=== PATIENT | female | born 1990 | race Caucasian/White ===

== ENCOUNTER 2019-06-16 13:07 | Emergency (ER) | payer OTHER, SELFPAY ==
[2019-06-16 13:20] VITALS: BP 150/58; PULSE 88; RESP 14; TEMP 36.6; O2SAT 100
--- NOTE | 2019-06-16 13:31 | ED.URI ---
HPI - URI/Sore Throat General Chief Complaint: Upper Respiratory Infection Stated Complaint: cough/chest Time Seen by Provider: 06/16/19 13:25 History of Present Illness HPI Narrative: Diana Fuller is a 28 yo female with a PMH of asthma who came to express care to get a note to be able to return to work. He has had a dry cough since Wednesday, no fever, some mild congestion, coughing up some greenish sputum. Patient is a light smoker Related Data Home Medications Medication Instructions Recorded Confirmed albuterol sulfate 2 puff INHALATION QID PRN 06/16/19 06/16/19 Allergies Allergy/AdvReac Type Severity Reaction Status Date / Time No Known Allergies Allergy Verified 06/16/19 13:25 Review of Systems Review of Systems: Narrative: CONSTITUTIONAL: Denies fever, chills, sweats. EYES: Denies visual changes, redness, discharge. ENT: Denies rhinorrhea, some congestion, sore throat, no otalgia. CARDIOVASCULAR: Denies chest pain, palpitations, edema. RESPIRATORY: Denies dyspnea, wheezing, dry cough GASTROINTESTINAL: Denies abdominal pain, nausea, vomiting, diarrhea. GENITOURINARY: Denies dysuria, hematuria, abnormal discharge SKIN: Denies rash or itching. NEUROLOGIC: Denies numbness, or focal weakness. PSYCHIATRIC: Denies anxiety or depression. PMFSH Family History Family History Other Diabetes mellitus Social History Social History (Updated 06/16/19 @ 13:33 by Anne Peo CNP) Smoking status: Current every day smoker Alcohol intake: current Comments At time of signature, I agree with nursing past medical, surgical, social and family history. There is no relevant family history pertinent to the presenting complaint. Noted elevated BP, has pcp and not dx with HTN Exam Narrative: Exam Narrative: GENERAL: This is a well-nourished, well-developed patient, in no apparent distress. HEAD: normocephalic, atraumatic. EYES:Sclera clear/white. Vision is grossly intact. EARS: External ears normal, . Hearing grossly intact. NOSE: External nose normal with nasal discharge, nares without redness, no rhinorrhea. THROAT: Mucous membranes moist, posterior pharynx erythema NECK: Neck supple, non-tender CARDIOVASCULAR: Regular rate and rhythm without murmurs, gallops, or rubs. RESPIRATORY: Clear to auscultation. Breath sounds equal bilaterally. No wheezes, rales, or rhonchi. GASTROINTESTINAL: Abdomen soft, SKIN: warm, intact with no suspicious lesions or rash, good texture and turgor. NEURO: awake, alert, and oriented to person, place and time. There were no obvious focal neurologic abnormalities. Steady gait EXTREMITIES: Normal range of motion. No edema. . BACK: Nontender without deformity Course Course Emergency Course: Started on Mucinex prednisone and cough syrup Return to work on Wednesday Vital Signs Vital signs: Vital Signs Temperature 97.8 F 06/16/19 13:20 Pulse Rate 88 06/16/19 13:20 Respiratory Rate 14 06/16/19 13:20 Blood Pressure 150/58 H 06/16/19 13:20 Pulse Oximetry 100 06/16/19 13:20 Temperature 97.8 F 06/16/19 13:20 Pulse Rate 88 06/16/19 13:20 Respiratory Rate 14 06/16/19 13:20 Blood Pressure 150/58 H 06/16/19 13:20 Pulse Oximetry 100 06/16/19 13:20 MDM - URI/Sore Throat Differential Diagnosis Differential diagnosis: Likely upper respiratory infection, sinusitis, viral infection, pharyngitis and other Discharge Plan Discharge Clinical Impression: Upper respiratory infection Qualifiers: URI type: unspecified URI Qualified Code(s): J06.9 - Acute upper respiratory infection, unspecified Patient Disposition: Home, Self-Care Condition: Stable Instructions: Upper Respiratory Infection (DC) Prescriptions: New pseudoephedrine-guaifenesin [Mucinex D] 60-600 mg tablet extended release 12 hr 1 tablet PO BID PRN (Reason: cold symptoms) Qty: 30 RF: 0 prednisone 20 mg tablet
== END 2019-06-16 13:41 | disposition home or self-care (01) ==
PROVIDERS: Emergency Provider Nurse Practitioner
DX: J06.9 Acute upper respiratory infection, unspecified (principal); F17.200 Nicotine dependence, unspecified, uncomplicated; J45.909 Unspecified asthma, uncomplicated
CPT/HCPCS: 99213; G0463

== ENCOUNTER 2019-08-31 10:04 | Emergency (ER) | payer OTHER, SELFPAY ==
[2019-08-31 10:10] VITALS: BP 118/52; PULSE 83; RESP 18; TEMP 37; O2SAT 97
--- NOTE | 2019-08-31 10:20 | ED.GENADULT ---
HPI - General Adult General Stated complaint: sore throat/cough/drainage Time Seen by Provider: 08/31/19 10:20 Source: patient Mode of arrival: ambulatory Limitations: no limitations History of Present Illness HPI narrative: 28-year-old female patient presents [facility] with complaints of sore throat for the past 4 days. Patient states she did have some leftover amoxicillin which she has been taking for the past 3 days but states that her symptoms have not improved. Patient denies any fevers that she is aware of. Patient states she has felt like she has a little bit of fluid in the ears denies any stuffy nose, runny nose. Denies any chest pain, shortness of breath. Denies any abdominal pain, nausea, vomiting or diarrhea. Patient denies or breast-feeding at this time. Related Data Allergies Allergy/AdvReac Type Severity Reaction Status Date / Time No Known Allergies Allergy Verified 08/31/19 10:28 Review of Systems Review of Systems: Narrative: CONSTITUTIONAL: Denies fever, chills, or sweats. EYES: Denies visual changes, redness, or discharge. ENT: Denies rhinorrhea, congestion, positive sore throat, denies otalgia. CARDIOVASCULAR: Denies chest pain, palpitations, or edema. RESPIRATORY: Denies cough or dyspnea. GASTROINTESTINAL: Denies abdominal pain, nausea, vomiting, or diarrhea. GENITOURINARY: Denies dysuria or hematuria. SKIN: Denies rash or itching. MUSCULOSKELETAL: Denies back pain, joint pain, or myalgia. NEUROLOGIC: Denies headache, numbness, or weakness. PSYCHIATRIC: Denies anxiety or depression. PMFSH Family History Family History Other Diabetes mellitus Social History Social History Smoking status: Current every day smoker Alcohol intake: current Comments At the time of my signature I agree with nursing past medical history, surgical, social, and family history. There is no relevant family history pertinent to the presenting complaint. Exam Narrative: Exam Narrative: GENERAL: Well-appearing, well-nourished, and in no acute distress. HEAD: Normocephalic, atraumatic. EYES: PERRLA and EOMI. ENT: Nares clear, no rhinorrhea or epistaxis. Mucous membranes moist. Posterior pharynx with bilateral 2+ tonsil enlargement and exudates noted on the left side. Plantar bilateral TMs have a little bit of fluid in them but no erythema no bulging noted NECK: Supple. No lymphadenopathy CHEST: Clear to auscultation. No respiratory distress. HEART: Regular rate and rhythm. No murmur heard. Normal peripheral pulses. ABDOMEN: Soft, nontender, nondistended, normal active bowel sounds. EXTREMITIES: Normal range of motion. No edema. SKIN: Warm, dry, no rash. NEURO: No focal deficits. Alert and oriented x3. Course Vital Signs Vital signs: Vital Signs Temperature 37.0 C 08/31/19 10:10 Pulse Rate 83 08/31/19 10:10 Respiratory Rate 18 08/31/19 10:10 Blood Pressure 118/52 L 08/31/19 10:10 Pulse Oximetry 97 08/31/19 10:10 Temperature 37.0 C 08/31/19 10:10 Pulse Rate 83 08/31/19 10:10 Respiratory Rate 18 08/31/19 10:10 Blood Pressure 118/52 L 08/31/19 10:10 Pulse Oximetry 97 08/31/19 10:10 Vital signs reviewed. Medical Decision Making Differential Diagnosis Differential Diagnosis: Differential diagnosis: Allergic rhinitis, chronic sinusitis, tonsillitis, acute sinusitis, infectious mononucleosis, seasonal influenza, pertussis, diphtheria, meningococcal disease, viral syndrome, viral bronchitis, RSV. Viral pharyngitis, pharyngitis, group A strep, infectious mononucleosis, gonococcal pharyngitis, exudative pharyngitis, oral candidiasis. Chronic allergies, postnasal drip, GERD, abscess formation, but glottitis, retropharyngeal abscess formation, or airway obstruction. Discussed with patient that her bedside strep test result did come back positive for strep. Disc
== END 2019-08-31 10:30 | disposition home or self-care (01) ==
PROVIDERS: Emergency Provider Nurse Practitioner Family
DX: J02.0 Streptococcal pharyngitis (principal); F17.200 Nicotine dependence, unspecified, uncomplicated
CPT/HCPCS: 87880; 99213; G0463

== ENCOUNTER 2020-11-23 12:26 | Emergency (ER) | payer OTHER, SELFPAY ==
[2020-11-23 12:34] VITALS: BP 136/64; PULSE 81; RESP 20; TEMP 37.1; O2SAT 100
--- NOTE | 2020-11-23 13:11 | ED.FEMALEGU ---
HPI - Female Genitourinary General Chief complaint: Urogenital-Female Stated complaint: poss uti Time Seen by Provider: 11/23/20 13:12 Source: patient and RN notes reviewed Mode of arrival: ambulatory Limitations: no limitations History of Present Illness HPI Narrative: 29-year-old female presents concern for suprapubic pressure, urinary urgency. Reports symptoms started 1 month ago and have been intermittent. She denies fever, back pain, dysuria, nausea, vomiting, abdominal pain. Denies abnormal vaginal discharge. MD elicited complaint: UTI Related Data Allergies Allergy/AdvReac Type Severity Reaction Status Date / Time No Known Allergies Allergy Verified 11/23/20 12:37 Review of Systems Review of Systems: CONSTITUTIONAL: Denies malaise, chills, sweats, or fever. GASTROINTESTINAL: Denies abdominal pain, nausea, vomiting, diarrhea, bloody, or mucous stools. GENITOURINARY: Denies dysuria frequency, or hematuria. Reports urgency, suprapubic pressure SKIN: Denies rash or itching. MUSCULOSKELETAL: Denies back pain or myalgia. All systems reviewed & are unremarkable except as noted in HPI and below PMFSH Family History Family History Other Diabetes mellitus Social History Social History Smoking status: Current every day smoker Alcohol intake: current Comments At time of signature, agree with nursing past medical, surgical, social and family history. There is no relevant family history pertinent to the presenting complaint Exam Narrative: GENERAL: Well-appearing, well-nourished, and in no acute distress. HEAD: Normocephalic. EYES: PERRLA, conjunctivae clear. NECK: Supple. No lymphadenopathy CHEST: Clear to auscultation. No respiratory distress. HEART: Regular rate and rhythm. ABDOMEN: Soft, nontender upon palpation, nondistended, normal active bowel sounds, no palpable or pulsatile masses, no guarding. No CVA tenderness SKIN: Warm, dry, no rash. NEURO: Alert and oriented x3. PSYCH: Normal mood and affect Course Course Emergency Course: Patient is aware of diagnosis, understands and agrees to treatment plan. Anticipatory guidance given. Patient agrees to follow-up as directed and is aware of reasons to seek care at the emergency department. Portions of this record may have been created with voice recognition software Vital Signs Vital signs: Vital Signs Temperature 98.8 F 11/23/20 12:34 Pulse Rate 81 11/23/20 12:34 Respiratory Rate 20 11/23/20 12:34 Blood Pressure 136/64 11/23/20 12:34 Pulse Oximetry 100 11/23/20 12:34 Temperature 98.8 F 11/23/20 12:34 Pulse Rate 81 11/23/20 12:34 Respiratory Rate 20 11/23/20 12:34 Blood Pressure 136/64 11/23/20 12:34 Pulse Oximetry 100 11/23/20 12:34 Reviewed. MDM - Female Genitourinary MDM Narrative Medical decision making narrative: Exam findings and UA show no acute concerns or changes; patient is non-toxic appearing and is in no distress. Patient is appropriate for outpatient treatment and follow-up. Lab Data Labs: Urine Glucose Negative Reference Range: Negative Urine Bilirubin Negative Reference Range: Negative Urine Ketone Negative Reference Range: Negative Urine Specific [place] 1.025 Reference Range:1.001-1.035 Urine Blood Negative Reference Range: Negative * * Urine pH 7.5 Reference Range: 5.0-9.0 Urine Protein Negative
== END 2020-11-23 13:24 | disposition home or self-care (01) ==
PROVIDERS: Emergency Provider Nurse Practitioner
DX: R39.15 Urgency of urination (principal); R10.30 Lower abdominal pain, unspecified
CPT/HCPCS: 81003; 87077; 87086; 87088; 87186; 99213; G0463

== ENCOUNTER 2022-06-29 17:31 | Emergency (ER) | payer OTHER, SELFPAY ==
--- NOTE | 2022-06-29 17:34 | ED.URI ---
HPI - URI/Sore Throat General Chief Complaint: Ear Stated Complaint: Ear Pain Time Seen by Provider: 06/29/22 17:34 Source: patient and RN notes reviewed History of Present Illness HPI Narrative: Patient is a 31-year-old female presents to urgent care with complaints of bilateral ear discomfort. Patient states that she blew her nose yesterday morning and she felt the left ear ?pop?. Patient states that now her right ear has been bothering her. Denies any use of [id number]-[id number] medication. Denies any other upper respiratory complaints. No acute distress noted. Patient aware of plan of care. Some parts of this dictation were generated by voice recognition software and may contain typographical and/or grammatical inaccuracies. Related Data Allergies Allergy/AdvReac Type Severity Reaction Status Date / Time No Known Allergies Allergy Verified 11/23/20 12:37 Review of Systems Review of Systems: CONSTITUTIONAL: Denies fever, chills, or sweats. EYES: Denies visual changes, redness, or discharge. ENT: Denies rhinorrhea, congestion, sore throat. Reports bilateral otalgia CARDIOVASCULAR: Denies chest pain, palpitations, or edema. RESPIRATORY: Denies cough or dyspnea. GASTROINTESTINAL: Denies abdominal pain, nausea, vomiting, or diarrhea. GENITOURINARY: Denies dysuria or hematuria. SKIN: Denies rash or itching. MUSCULOSKELETAL: Denies back pain, joint pain, or myalgia. NEUROLOGIC: Denies headache, numbness, or weakness. All other systems reviewed are negative, except as documented in HPI. PMFSH Family History Family History Other Diabetes mellitus Social History Social History Smoking status: Current every day smoker Alcohol intake: current Comments At the time of my signature, I reviewed and agree with the nursing past medical, surgical, social, and family history. There is no relevant family history pertinent to the patient complaint. Exam Narrative: GENERAL: This is a well-nourished, well-developed patient, in no apparent distress. HEAD: normocephalic, atraumatic. EYES: PERRL. Sclera clear/white. Vision is grossly intact. EARS: External ears normal, auditory canals clear and without drainage, bilateral eustachian tube dysfunction. TMs normal without perforation. Hearing grossly intact. NOSE: External nose normal with no obvious nasal discharge, nares without redness, no rhinorrhea. THROAT: Mucous membranes moist, posterior pharynx clear. Mild postnasal drainage NECK: Neck supple\ RESPIRATORY: Clear to auscultation. Breath sounds equal bilaterally. No wheezes, rales, or rhonchi. SKIN: warm, intact with no suspicious lesions or rash, good texture and turgor. NEURO: awake, alert, and oriented to person, place and time. There were no obvious focal neurologic abnormalities. EXTREMITIES: No clubbing, cyanosis, or edema. Course Course Level of Care: Express Care Visit Vital Signs Vital signs: Vital Signs Temperature 98.6 F 06/29/22 17:36 Pulse Rate 72 06/29/22 17:36 Respiratory Rate 20 06/29/22 17:36 Blood Pressure 138/74 06/29/22 17:36 Pulse Oximetry 99 06/29/22 17:36 Oxygen Delivery Room Air 06/29/22 17:36 Temperature 98.6 F 06/29/22 17:36 Pulse Rate 72 06/29/22 17:36 Respiratory Rate 20 06/29/22 17:36 Blood Pressure 138/74 06/29/22 17:36 Pulse Oximetry 99 06/29/22 17:36 Oxygen Delivery Room Air 06/29/22 17:36 Reviewed MDM - URI/Sore Throat MDM Narrative Medical decision making narrative: Advised patient take a daily Zyrtec or Claritin. Use Flonase nasal spray and or Benadryl before bed. Complete the steroid regimen prescribed. Be sure to drink medication. Do not anything in the ears such as water, peroxide, Q-tips or iuoq-cga-jiiyorc drops. Follow-up with your PCP within 2-5 days or for worsening symptoms or failure to improve. Differential Diagnosi
[2022-06-29 17:36] VITALS: BP 138/74; PULSE 72; RESP 20; TEMP 37; O2SAT 99
== END 2022-06-29 18:11 | disposition home or self-care (01) ==
PROVIDERS: Emergency Provider Nurse Practitioner Family; PCP Family Medicine
DX: H69.83 Other specified disorders of Eustachian tube, bilateral (principal); F17.200 Nicotine dependence, unspecified, uncomplicated
CPT/HCPCS: 99213; G0463

== ENCOUNTER 2024-02-21 17:19 | Emergency (ER) | payer SELFPAY ==
[2024-02-21 17:24] VITALS: BP 154/54; PULSE 97; RESP 20; TEMP 36.8; O2SAT 98
--- NOTE | 2024-02-21 17:32 | ED_ITS ---
HPI - URI/Sore Throat General Stated Complaint: Cough/Chills/Fever.Chest Congestion Time Seen by Provider: 02/21/24 17:36 Source: patient and RN notes reviewed Mode of arrival: ambulatory Limitations: no limitations History of Present Illness HPI Narrative: 33-year-old female presents with concern for cough. She reports chills, fever and chest congestion. She reports a history of asthma. She reports she has be en using her albuterol inhaler every 6 hours or so. MD elicited complaint: cough Related Data Allergies Allergy/AdvReac Type Severity Reaction Status Date / Time No Known Allergies Allergy Verified 02/21/24 17:43 Review of Systems Review of Systems: CONSTITUTIONAL: Reports malaise, chills EYES: Denies visual changes, redness, or discharge. ENT: Reports rhinorrhea, congestion, sinus pain, otalgia and sore throat. CARDIOVASCULAR: Denies chest pain, palpitations, or edema. RESPIRATORY: Reports cough and chest congestion GASTROINTESTINAL: Denies abdominal pain, nausea, vomiting, diarrhea SKIN: Denies rash or itching. MUSCULOSKELETAL: Denies myalgia. NEUROLOGIC: Denies headache. All systems reviewed & are unremarkable except as noted in HPI and below PMFSH Family History Family History Other Diabetes mellitus Social History Social History Smoking status: Current every day smoker Alcohol intake: current Comments At time of signature, agree with nursing past medical, surgical, social and family history. There is no relevant family history pertinent to the presenting complaint Exam Narrative: GENERAL: Well-appearing, well-nourished, and in no acute distress. HEAD: Normocephalic EYES: PERRLA, conjunctivae clear ENT: Nares clear. Mucous membranes moist. TM pearly fatima with dull light reflex bilaterally; no tragal tenderness. Oropharynx not erythematous without lesions. Tonsils not enlarged and without exudate, no drooling, no hoarseness, no trismus, uvula midline. NECK: Supple. No lymphadenopathy CHEST: Slightly diminished, otherwise Clear to auscultation, breath sounds equal. No wheezing, rhonchi, rales, or stridor. No respiratory distress, speaks in full sentences. Forceful cough noted HEART: Regular rate and rhythm. No murmur heard. SKIN: Warm, dry, no rash. NEURO: Alert and oriented x3. PSYCH: Normal mood and affect Course Course Emergency Course: Patient is aware of diagnosis, understands and agrees to treatment plan. Anticipatory guidance given. Patient agrees to follow-up as directed and is aware of reasons to seek care at the emergency department. Portions of this record may have been created with voice recognition software Level of Care: Express Care Visit Vital Signs Vital signs: Vital Signs Temperature 98.3 F 02/21/24 17:24 Pulse Rate 97 02/21/24 17:24 Respiratory Rate 20 02/21/24 17:24 Blood Pressure 154/54 H 02/21/24 17:24 Pulse Oximetry 98 02/21/24 17:24 Oxygen Delivery Room Air 02/21/24 17:24 Temperature 98.3 F 02/21/24 17:24 Pulse Rate 97 02/21/24 17:24 Respiratory Rate 20 02/21/24 17:24 Blood Pressure 154/54 H 02/21/24 17:24 Pulse Oximetry 98 02/21/24 17:24 Oxygen Delivery Room Air 02/21/24 17:24 Reviewed. MDM - URI/Sore Throat MDM Narrative Medical decision making narrative: Differential diagnosis considered: [place] virus, strep pharyngitis, allergic rhinitis, upper respiratory tract infection, sinusitis, rhinosinusitis, nasop haryngitis. viral pharyngitis, otitis media, otitis externa, pneumonia, bronchitis, viral cough syndrome, viral syndrome, and influenza. Exam findings show no acute concerns or changes; patient is non-toxic appearing and is in no distress. Patient is appropriate for outpatient treatment and follow-up. Lab Data Attestation: I reviewed the patient's lab results. Critical Care Time Critical Care Time Critical Care Time: No Discharge Plan Discharge Clinical Impression: Asthma exacerbation Patient Disposition: Home, Self-Care Condition: Stable Instructions: Antibiotic Form, Asthma (ED) Additional Instructions: Take medicines as directed. Visit your primary care doctor if: You have wheezing, shortness of breath, or a cough even if taking medicine to prevent attacks. You have thickening of sputum. Your sputum changes from clear or white to yellow, green, fatima, or bloody. You have any problems that may be related to the medicines you are taking (such as a rash, itching, swelling, or trouble breathing). You are using a reliever medicine more than 2 to 3 times per week. Visit the ER if: You are short of breath even at rest or when doing very little physical activity. You develop difficulty eating, drinking, or talking due to asthma symptoms. You have chest pain or you feel that your heart is beating fast. You are lightheaded, dizzy, faint or have bluish lips or fingernails. You have a fever or persistent symptoms for more than 2 to 3 days or symptoms suddenly get worse. You seem to be getting worse and are unresponsive to treatment during an asthma attack. Prescriptions: New azithromycin [Zithromax Z-Juan Antonio] 250 mg tablet See Rx Instructions .ROUTE .COMPLEX Qty: 6 0RF Rx Instructions: take 500 mg today (day 1), then 250 mg for 4 days (days 2-5) prednisone 20 mg tablet 40 mg PO DAILY 5 Days Qty: 10 0RF albuterol sulfate 90 mcg/actuation HFA aerosol inhaler 2 puff INHALATION QID PRN (Reason: shortness of breath or wheezing) Qty: 8.5 0RF Follow-up/Referrals: PHYSICIAN,CLINICAL SAFETY MANAGER [Primary Care Provider] - Time of Disposition: 17:45
== END 2024-02-21 17:47 | disposition home or self-care (01) ==
PROVIDERS: Emergency Provider Nurse Practitioner
DX: J45.901 Unspecified asthma with (acute) exacerbation (principal); F17.200 Nicotine dependence, unspecified, uncomplicated
CPT/HCPCS: 99213; G0463